=== PATIENT | female | born 1930 | race Caucasian/White ===

== ENCOUNTER 2016-04-02 16:39 | Outpatient (CLI) ==
[2016-04-02 17:05] VITALS: BMI 22.4
== END 2016-04-02 16:40 | disposition home or self-care (01) ==
LOC: AMBL 16:39
PROVIDERS: ATTEND Internal Medicine
DX: R07.9 Chest pain, unspecified (principal); R53.1 Weakness; R42 Dizziness and giddiness; I10 Essential (primary) hypertension

== ENCOUNTER 2016-04-02 16:53 | Emergency (ER) ==
[2016-04-02 17:05] VITALS: BP 106/69; TEMP 97; BMI 22.4
[2016-04-02 17:32] LABS: BASOPHILS % (AUTO) 0.5 % (0.0-3.0); EOSINOPHILS # (AUTO) 0.1 K/ul (0.0-0.7); EOSINOPHILS % (AUTO) 1.4 % (0.0-7.0); HEMATOCRIT 42.3 % (37.0-47.0); HEMOGLOBIN 14.1 g/dl (12.0-16.0); IMMATURE GRANULOCYTE % (AUTO) 0.6 % (0.0-5.0); LYMPHOCYTES # (AUTO) 1.1 K/uL (0.60-3.4); LYMPHOCYTES % (AUTO) 13.6 (10.0-50.0); MEAN CORPUSCULAR HEMOGLOBIN 32.1 pg (27.0-31.0); MEAN CORPUSCULAR HGB CONC 33.3 (31.8-35.4); MEAN CORPUSCULAR VOLUME 96.4 fl (81.0-99.0); MONOCYTES # (AUTO) 0.7 K/uL (0.4-2.0); MONOCYTES % (AUTO) 8.2 (0-10); NEUTROPHILS % (AUTO) 75.7; PLATELET COUNT 284 10^3/uL (140-440); RED BLOOD COUNT 4.39 10^6/ul (4.20-5.40); WHITE BLOOD COUNT 7.94 K/ul (4.6-10.2)
[2016-04-02 18:14] LABS: ALBUMIN 3.4 g/dL (3.4-5.0); ALBUMIN/GLOBULIN RATIO 1.17; ANION GAP 12.9; BILIRUBIN,TOTAL 0.31 mg/dL (0.00-1.20); BUN/CREATININE RATIO 37.17; CALCIUM 9.3 mg/dL (8.2-10.2); CREATININE 0.78 mg/dL (0.60-1.30); POTASSIUM 4.9 mmol/L (3.5-5.10); TOTAL PROTEIN 6.3 g/dL (5.8-8.1)
[2016-04-02 18:16] LABS: TROPONIN I 1.644 ng/ml (0.0000-0.4000)
[2016-04-02] MEDS ORDERED: ASPIRIN CHEWABLE PO STA (18:30)
[2016-04-02] MEDS ORDERED: ASPIRIN CHEWABLE ONE (18:31)
[2016-04-02] MEDS ORDERED: SODIUM CHLORIDE 500 ML IV STA (18:31)
--- NOTE | 2016-04-02 18:33 | ED.PDOC ---
General ED Provider: Dr. GABRIELLA MERCADO Chief Complaint: Syncope Stated Complaint: near syncope Time Seen by Physician: 17:00 (family and enmanuel at bedside at all times ) Mode of Arrival: Walk-In Information Source: Patient, EMT Exam Limitations: No limitations Primary Care Provider: JOVITA NAJERA Nursing and Triage Documentation Reviewed and Agree: No Miscellaneous Complaint Exam - Complex/Multi-System Complaint/Exam Onset/Duration: At [facility] care suddenly became weak almost had a syncopal even Symptoms Are: Resolved (At 6;20 pm acutely weak hypotensive) Current Severity: Moderate Location of Pain: central chest 2/10 Pain Radiates to: none Character: dull Aggravating: none Alleviating: none Associated Signs and Symptoms: Reports: Chest pain (described as pressure ). Denies: Decreased responsiveness, Confusion, Agitation, Dizziness, Weakness, Syncope, Headache, Short of air, Cough, Wheezing, Hemoptysis, Palpitations, Edema, Nausea, Vomiting, Diarrhea, Abdominal pain, Back pain, Dysuria, Hematemesis, Melena, Decreased oral intake, Fever, Diaphoresis, Immunocompromised, Anticoagulation Therapy, Recent medication changes, Indwelling medical policy specialist, Prior MRSA, Prior VRE, Recent trauma, Remote trauma Recent Echo/LV Function: No Respiratory Distress: None JVD Present: No Tachypnea Present: No Stridor Present: No Abdominal Findings: Present: Normal findings Glascow Coma Scale (see protocol): 15 Meningeal Signs Positive: No Focal Weakness: Present: None Focal Sensory Loss: Present: None Gait: Normal Gag Reflex Present: Yes Skin Findings: Present: Normal findings Joint Swelling Present: No In-Dwelling Device Present: No Differential Diagnosis: Cardiac Ischemia Quality Indicators for Cardiac Chest Pain: EKG in 10min. Quality Indicators for AMI: EKG in 10min. Quality Indicator For Non-Traumatic Chest Pain/Syncope: EKG Performed Review of Systems - Review Of Systems Constitutional: Reports: No symptoms Eyes: Reports: No symptoms Ears, Nose, Mouth, Throat: Reports: No symptoms Respiratory: Reports: No symptoms Cardiac: Reports: Chest pain GI: Reports: No symptoms : Reports: No symptoms Musculoskeletal: Reports: No symptoms Skin: Reports: No symptoms Neurological: Reports: No symptoms Endocrine: Reports: No symptoms Hematologic/Lymphatic: Reports: No symptoms All Other Systems: Reviewed and Negative Past Medical History - Past Medical History Previously Healthy: Yes Endocrine: Reports: None Cardiovascular: Reports: Hypertension Respiratory: Reports: None Hematological: Reports: None Gastrointestinal: Reports: None Genitourinary: Reports: None Neuro/Psych: Reports: None Musculoskeletal: Reports: None Cancer: Reports: None Last Menstrual Period: n/a - Surgical History General Surgical History: Reports: None - Family History Family History: Reports: None - Social History Smoking Status: Never smoker Hx Substance Use: No Alcohol Screening: None Physical Exam - Physical Exam Appearance: Well-appearing, No pain distress, Well-nourished Eyes: VIRGILIO, EOMI, Conjunctiva clear ENT: Ears normal, Nose normal, Oropharynx normal Respiratory: Airway patent, Breath sounds clear, Breath sounds equal, Respirations nonlabored Cardiovascular: RRR, Pulses normal, No rub, No murmur GI/: Soft, Nontender, No masses, Bowel sounds normal, No Organomegaly Musculoskeletal: Normal strength, ROM intact, No edema, No calf tenderness Skin: Warm, Dry, Normal color Neurological: Sensation intact, Motor intact, Reflexes intact, Cranial nerves intact, Alert, Oriented Psychiatric: Affect appropriate, Mood appropriate 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 Rhythm: Sinus Ectopy: None - EKG Interpretation Rate: Normal Rhythm: Sinus [place]: Left ( inversion AVL) ST Segment: Normal Critical Care Note - Critical Care Note Total Time (mins): 0 Course - Course Hematology/Chemistry: 04/02/16 17:30 04/02/16 17:30 Orders, Labs, Meds: Lab Review 04/02/16 17:30 WBC 7.94 RBC 4.39 Hgb 14.1 Hct 42.3 MCV 96.4 MCH 32.1 H MCHC 33.3 RDW Coeff of [place] 11.8 Plt Count 284 Immature Gran % (Auto) 0.6 Neut % (Auto) 75.7 Lymph % (Auto) 13.6 [place] % (Auto) 8.2 Eos % (Auto) 1.4 Baso % (Auto) 0.5 Immature Gran # (Auto) 0.1 Neut # 6.0 Lymph # 1.1 [place] # 0.7 Eos # 0.1 Baso # 0.0 Sodium 135 L Potassium 4.9 Chloride 99 Carbon Dioxide 28 Anion Gap 12.9 BUN 29 H Creatinine 0.78 Estimated GFR (MDRD) 70.00 BUN/Creatinine Ratio 37.17 Glucose 115 Calcium 9.3 Total Bilirubin 0.31 AST 28 ALT 20 Alkaline Phosphatase 76 Total Creatine Kinase 101 Troponin I 1.6440 H* B-Natriuretic Peptide 148 H Total Protein 6.3 Albumin 3.4 Globulin 2.9 Albumin/Globulin Ratio 1.17 Orders Category Date Time Status EKG-(ED ONLY) Stat CARDIO 04/02/16 17:02 Completed B-TYPE NATRIURETIC PEPTIDE Stat LAB 04/02/16 17:30 Completed CBC W/ AUTO DIFF Stat LAB 04/02/16 17:30 Completed COMPREHENSIVE METABOLIC PANEL Stat LAB 04/02/16 17:30 Completed CREATINE KINASE Stat LAB 04/02/16 17:30 Completed D-DIMER Stat LAB 04/02/16 17:30 Received TROPONIN I Stat LAB 04/02/16 17:30 Completed URINALYSIS C & S IF INDICATED Stat LAB 04/02/16 17:01 Uncollected Aspirin [Aspirin Chewable] MEDS 04/02/16 18:30 Stat 324 mg PO ONCE STA CHEST, 1V AP ONLY Stat RADS 04/02/16 17:01 Taken Medications Generic Name Dose Route Start Last Admin Trade Name Freq PRN Reason Stop Dose Admin Aspirin 324 mg 04/02/16 18:30 Aspirin Chewable PO 04/02/16 18:31 ONCE STA Vital Signs: Temp Pulse Resp BP Pulse Ox 04/02/16 16:54 97.0 F L 72 16 106/69 98 Departure - Departure Time of Disposition: 19:00 (FAMILY REQUSTED TO GO [facility]) Disposition: TSF SHORT-TRM HOSP Discharge Problem: Syncope Instructions: Angina (ED), Chest Pain (ED) Condition: Good Pt referred to PMD for follow-up: Yes (PMD AWARE OF PT DECISION FOR TRANSFER , ) Allergies/Adverse Reactions: Allergies No Known Drug Allergies Allergy (Unverified 04/02/16 16:58) Home Medications: Ambulatory Orders Aspirin [Aspirin EC] 81 mg PO DAILY 02/06/13 Calcium/Magnesium/Vit D3 [Calcium 500 mg Tablet] 500 mg PO BID 02/06/13 Losartan/Hydrochlorothiazide [Hyzaar 50-12.5 Tablet] 0.5 each PO MOWEFR Transfer Form Completed: Yes Disposition Discussed With: Patient, Family
--- NOTE | 2016-04-02 18:46 | DI ---
Exam: Chest one-view History: Cough FINDINGS: Normal cardiomediastinal contours. Normal pulmonary vasculature. The lungs are mildly h yperexpanded. No infiltrative opacities. No acute chest wall abnormality. Impression: No acute cardiopulmonary disease.
[2016-04-02] MEDS ORDERED: LOVENOX SUBCUT STA (20:10)
[2016-04-02] MEDS ORDERED: ZOFRAN 4 MG/2 ML IVP STA (20:23)
[2016-04-02] MEDS ORDERED: MORPHINE 2 MG/ML SYRINGE IVP STA (20:23)
== END 2016-04-02 20:40 | disposition short-term general hospital (02) ==
LOC: ED 16:53 → UNDOADMIN 18:36 → SCU 18:36 → ED 20:40
DX: R55 Syncope and collapse (principal); R07.89 Other chest pain; R53.1 Weakness
CPT/HCPCS: 36415; 80053; 82550; 83880; 84484; 85025; 85379; 93005; 93010; 96361; 96372; 96374; 96375; 99285

== ENCOUNTER 2016-05-18 12:59 | Outpatient (RCR) ==
[2016-05-18 13:15] VITALS: TEMP 97.8; BMI 21.1
[2016-05-25 14:11] VITALS: BP 118/56
== END 2016-05-26 ==
LOC: CAR.REHAB 12:59
PROVIDERS: ATTEND Internal Medicine
DX: I21.3 ST elevation (STEMI) myocardial infarction of unspecified site (principal); I25.10 Atherosclerotic heart disease of native coronary artery without angina pectoris; Z95.5 Presence of coronary angioplasty implant and graft; Z98.890 Other specified postprocedural states
CPT/HCPCS: 93798

== ENCOUNTER 2016-05-27 07:06 | Outpatient (RCR) ==
[2016-06-26 14:03] VITALS: BP 138/54
== END 2016-06-26 ==
LOC: CAR.REHAB 07:06
PROVIDERS: ATTEND Internal Medicine
DX: I25.10 Atherosclerotic heart disease of native coronary artery without angina pectoris (principal); Z95.5 Presence of coronary angioplasty implant and graft; I25.2 Old myocardial infarction
CPT/HCPCS: 93798

== ENCOUNTER 2016-06-27 07:00 | Outpatient (RCR) ==
[2016-07-24 14:11] VITALS: BP 128/52
== END 2016-07-26 ==
LOC: CAR.REHAB 07:00
PROVIDERS: ATTEND Internal Medicine
DX: I25.10 Atherosclerotic heart disease of native coronary artery without angina pectoris (principal); I25.2 Old myocardial infarction; Z95.5 Presence of coronary angioplasty implant and graft
CPT/HCPCS: 93798

== ENCOUNTER 2016-07-27 09:46 | Outpatient (RCR) ==
[2016-08-10 14:15] VITALS: BP 126/64
== END 2016-08-10 14:50 | disposition home or self-care (01) ==
LOC: CAR.REHAB 09:46
PROVIDERS: ATTEND Internal Medicine
DX: I25.10 Atherosclerotic heart disease of native coronary artery without angina pectoris (principal); I25.2 Old myocardial infarction; Z95.5 Presence of coronary angioplasty implant and graft
CPT/HCPCS: 93798